=== PATIENT | male | born 1990 | race Two or more races ===

== ENCOUNTER 2018-11-15 08:04 | Emergency (ER) | payer MEDICAID, OTHER ==
[~2018-11-15] VITALS: Ht 165.1 cm; Wt 81.6 kg
[2018-11-15 08:42] LABS: Urine Bacteria NONE SEEN /hpf (None Seen); Urine Blood Negative /uL (Negative); Urine Specific Gravity 1.006 (1.001-1.035); Urine WBC 1 /hpf (0 - 3)
[2018-11-15 09:34] LABS: Basophils # (auto) 0.1 uL; Hemoglobin 17.6 g/dL (13.5-17.5); Lymphocytes # (auto) 2.8 uL; Monocytes # (auto) 0.6 uL; Monocytes % (auto) 7.9 % (0.0-12.0); Neutrophils # (auto) 4.2 uL; Nucleated Red Blood Cells % 0.1 %
[2018-11-15 09:36] LABS: Basophils % (auto) 0.7 % (0.0-2.0); Eosinophils # (auto) 0 uL; Eosinophils % (auto) 0.6 % (0.0-7.0); Hematocrit 50.3 % (41.0-53.0); Lymphocytes % (auto) 36.4 % (10.0-50.0); Mean Corpuscular Hemoglobin 34.7 pg (28.0-32.0); Mean Corpuscular Hgb Conc. 34.9 g/dL (32.0-36.0); Mean Corpuscular Volume 99.5 fL (80.0-100.0); Neutrophils % (auto) 54.4 % (37.0-80.0); Platelet Count (auto) 170 10^3/uL (140-450); Red Blood Cells 5.06 10^6/uL (4.5-5.90); Red Cell Distribution Width 13.2 % (11.8-14.3); White Blood Cell 7.7 10^3/uL (4.4-10.8)
[2018-11-15 09:47] LABS: Calcium 8.8 mg/dL (8.5-10.1); Potassium 3.4 mmol/L (3.5-5.1)
[2018-11-15 09:50] LABS: Total Protein 8.5 g/dL (6.4-8.2)
[2018-11-15] MEDS ORDERED: SODIUM CHLORIDE 0.9% 1,000 ML IVB ONE (10:45)
[2018-11-15 11:48] VITALS: BP 136/78
== END 2018-11-15 12:47 | disposition home or self-care (01) ==
LOC: ER 08:09
DX: K52.9 Noninfective gastroenteritis and colitis, unspecified (principal)
CPT/HCPCS: 36415; 74176; 80053; 81001; 85025; 94761; 99284; J7030

== ENCOUNTER 2019-06-03 20:08 | Emergency (ER) | payer SELFPAY ==
[~2019-06-03] VITALS: Ht 162.6 cm; Wt 81.6 kg
[2019-06-03 21:43] VITALS: BP 167/88
== END 2019-06-03 22:11 | disposition home or self-care (01) ==
LOC: ER 20:08
DX: S02.32XA Fracture of orbital floor, left side, initial encounter for closed fracture (principal); Y08.89XA Assault by other specified means, initial encounter; Y93.89 Activity, other specified; Y99.8 Other external cause status; Y92.89 Other specified places as the place of occurrence of the external cause
CPT/HCPCS: 70450; 70486

== ENCOUNTER → 2019-07-01 | Emergency (ER) | payer SELFPAY ==
[~2019-07-01] VITALS: Ht 165.1 cm; Wt 81.6 kg
[~2019-07-01] MED LIST: THIAMINE HCL 100 MG TAB PO ONE
[2019-07-01 12:05] VITALS: BP 155/104
[2019-07-01 12:24] LABS: Urine Bacteria NONE SEEN /hpf (None Seen); Urine Blood Negative /uL (Negative); Urine Specific Gravity 1.016 (1.001-1.035); Urine WBC <1 /hpf (0 - 3)
[2019-07-01 12:43] LABS: Basophils # (auto) 0.1 uL; Eosinophils # (auto) 0 uL; Eosinophils % (auto) 0.1 % (0.0-7.0); Monocytes # (auto) 0.5 uL; White Blood Cell 7.4 10^3/uL (4.4-10.8)
[2019-07-01 12:45] LABS: Basophils % (auto) 0.8 % (0.0-2.0); Hematocrit 48.5 % (41.0-53.0); Hemoglobin 16.9 g/dL (13.5-17.5); Lymphocytes # (auto) 1.6 uL; Lymphocytes % (auto) 22.3 % (10.0-50.0); Mean Corpuscular Hemoglobin 35.7 pg (28.0-32.0); Mean Corpuscular Volume 102.2 fL (80.0-100.0); Monocytes % (auto) 6.2 % (0.0-12.0); Neutrophils # (auto) 5.2 uL; Neutrophils % (auto) 70.6 % (37.0-80.0); Platelet Count (auto) 160 10^3/uL (140-450); Red Blood Cells 4.74 10^6/uL (4.5-5.90); Red Cell Distribution Width 13.2 % (11.8-14.3)
[2019-07-01 13:23] LABS: Albumin 4.1 g/dL (3.4-5.0); Calcium 9.1 mg/dL (8.5-10.1); Magnesium 2.2 mg/dL (1.6-2.6); Potassium 3.8 mmol/L (3.5-5.1)
[2019-07-01 13:26] LABS: BUN/Creatinine Ratio 10.6; Bilirubin, Total 0.5 mg/dL (0.2-1.0)
== END | disposition home or self-care (01) ==
LOC: ER 11:36
DX: K40.90 Unilateral inguinal hernia, without obstruction or gangrene, not specified as recurrent (principal); K42.9 Umbilical hernia without obstruction or gangrene; R94.5 Abnormal results of liver function studies; F10.10 Alcohol abuse, uncomplicated; Y90.0 Blood alcohol level of less than 20 mg/100 ml
CPT/HCPCS: 36415; 74176; 80053; 81001; 82150; 83735; 85025

== ENCOUNTER → 2019-12-27 | Emergency (ER) | payer MEDICAID ==
[~2019-12-27] VITALS: Ht 165.1 cm; Wt 79.4 kg
[~2019-12-27] MED LIST changes: +SODIUM CHLORIDE 0.9% 1,000 ML IV ONE; -THIAMINE HCL 100 MG TAB PO ONE
[2019-12-27 19:07] VITALS: BP 150/105
== END | disposition left against medical advice (07) ==
LOC: ER 18:58
DX: R25.2 Cramp and spasm (principal)

== ENCOUNTER → 2021-03-14 | Emergency (ER) | payer MEDICAID ==
[~2021-03-14] VITALS: Ht 167.6 cm; Wt 68.0 kg
[2021-03-14 08:40] VITALS: BP 146/88
== END | disposition home or self-care (01) ==
LOC: ER 08:40
DX: S16.1XXA Strain of muscle, fascia and tendon at neck level, initial encounter (principal); Z88.8 Allergy status to other drugs, medicaments and biological substances; Z91.013 Allergy to seafood; X50.1XXA Overexertion from prolonged static or awkward postures, initial encounter; Y93.89 Activity, other specified; Y92.89 Other specified places as the place of occurrence of the external cause; Y99.8 Other external cause status
CPT/HCPCS: 72125; 93005

== ENCOUNTER 2021-04-19 05:36 | Emergency (ER) | payer MEDICAID ==
[~2021-04-19] VITALS: Ht 165.1 cm; Wt 68.0 kg
[2021-04-19 06:33] VITALS: BP 137/82
== END 2021-04-19 08:39 | disposition home or self-care (01) ==
LOC: ER 05:36
DX: S60.222A Contusion of left hand, initial encounter (principal); Z88.8 Allergy status to other drugs, medicaments and biological substances; Z91.013 Allergy to seafood; W18.39XA Other fall on same level, initial encounter; Y93.61 Activity, american tackle football; Y92.89 Other specified places as the place of occurrence of the external cause; Y99.8 Other external cause status
CPT/HCPCS: 73120

== ENCOUNTER 2021-07-06 | Emergency (ER) | payer MEDICAID ==
[2021-07-06] VITALS: BP 136/94
[~2021-07-06] VITALS: Ht 165.1 cm; Wt 72.6 kg
[2021-07-06 01:22] LABS: Basophils # (auto) 0 10 ^3/uL (0-0.2); Basophils % (auto) 0.5 % (0.0-2.0); Eosinophils # (auto) 0 10 ^3/uL (0-0.8); Eosinophils % (auto) 0.2 % (0.0-7.0); Hematocrit 45.4 % (41.0-53.0); Hemoglobin 15.7 g/dL (13.5-17.5); Lymphocytes % (auto) 22.5 % (10.0-50.0); Mean Corpuscular Hemoglobin 32.1 pg (28.0-32.0); Mean Corpuscular Hgb Conc. 34.6 g/dL (32.0-36.0); Mean Corpuscular Volume 92.6 fL (80.0-100.0); Monocytes # (auto) 0.3 10 ^3/uL (0-1.3); Monocytes % (auto) 3.6 % (0.0-12.0); Neutrophils # (auto) 6.5 10 ^3/uL (1.6-8.6); Neutrophils % (auto) 73.2 % (37.0-80.0); Red Cell Distribution Width 13.2 % (11.8-14.3); White Blood Cell 8.9 10^3/uL (4.4-10.8)
[2021-07-06 01:28] LABS: Calcium 9.9 mg/dL (8.5-10.1); Potassium 4.4 mmol/L (3.5-5.1)
[2021-07-06 01:32] LABS: Albumin 4.2 g/dL (3.4-5.0); BUN/Creatinine Ratio 13.4
[2021-07-06 01:35] LABS: Bilirubin, Total 0.6 mg/dL (0.2-1.0); Total Protein 8.2 g/dL (6.4-8.2)
[2021-07-06 02:40] LABS: Alcohol, Urine < 3.0 mg/dL (0-10); Amphetamine Screen, Urine NEGATIVE (NEGATIVE); Barbiturate Scree,Urine NEGATIVE (NEGATIVE); Benzodiazephine Screen, Urine NEGATIVE (NEGATIVE); Cannabinoid Screen, Urine POSITIVE (NEGATIVE); Cocaine Screen, Urine NEGATIVE (NEGATIVE); Opiate Scree,Urine NEGATIVE (NEGATIVE); Phencyclidine Screen, Urine NEGATIVE (NEGATIVE)
[2021-07-06 03:07] LABS: Urine Bacteria NONE SEEN /hpf (None Seen); Urine Blood Negative /uL (Negative); Urine Specific Gravity 1.026 (1.001-1.035); Urine WBC 1 /hpf (0 - 3)
== END 2021-07-06 05:52 | disposition home or self-care (01) ==
LOC: ER
DX: F12.10 Cannabis abuse, uncomplicated (principal); Z88.8 Allergy status to other drugs, medicaments and biological substances; Z91.013 Allergy to seafood
CPT/HCPCS: 36415; 80053; 80307; 81001; 85025